=== PATIENT | male | born 1970 | race American Indian/Alaskan Native ===

== ENCOUNTER 2016-10-22 15:59 | Emergency (ER) | payer OTHER ==
[2016-10-22 16:43] LABS: Basophils % (Auto) 0.6 % (0.0-1.8); Eosinophils % (Auto) 3.6 % (0.0-4.3); Hematocrit 43.3 % (35.5-45.6); Hemoglobin 14.1 gm/dl (11.8-15.2); Mean Corpuscular HGB Conc 33 % (32-34); Mean Corpuscular Hemoglobin 27 pg (28-32); Mean Corpuscular Volume 84 fl (84-94); Platelet Count 317 K/mm3 (140-440); Red Blood Count 5.16 M/mm3 (3.65-5.03); Red Cell Distribution Width 13.5 % (13.2-15.2); White Blood Count 8.1 K/mm3 (4.5-11.0)
[2016-10-22 17:01] LABS: Anion Gap 20 mmol/L; Blood Urea Nitrogen 12 mg/dL (9-20); Calcium 8.8 mg/dL (8.4-10.2); Carbon Dioxide 25 mmol/L (22-30); Chloride 100.7 mmol/L (98-107); Glucose 93 mg/dL (75-100); Potassium 3.8 mmol/L (3.6-5.0); Sodium 142 mmol/L (137-145)
[2016-10-22 23:24] VITALS: BP 179/83
[2016-10-22] MEDS ORDERED: PEPCID PO ONE (23:55)
[2016-10-22] MEDS ORDERED: TYLENOL PO ONE (23:55)
--- NOTE | 2016-10-23 00:01 | Emergency Department Report ---
HPI - General Chief Complaint: Chest Pain Time Seen by Provider: 10/22/16 22:56 - HPI HPI: The patient is a 46 amount presents for evaluation of chest pain. The patient reports constant chest pain for the past 12 hours, 5/10 in severity, aching in quality. The patient says that he has experienced similar pains for the past 9 months. The patient denies fever, neck pain, parasthesias, dyspnea, cough, hemoptysis, palpitations, dizziness, syncope, unilateral leg swelling, calf muscle pain. Patient also denies cocaine or other stimulant use, history of DVT or PE, recent immobilization, or history of cancer. ED Past Medical Hx - Past Medical History Hx Hypertension: Yes (BORDERLINE) Additional medical history: OBESITY - Surgical History Past Surgical History?: No Additional Surgical History: Lower endoscopy 5 years ago - Social History Smoking Status: Never Smoker Substance Use Type: Alcohol, Marijuana - Medications Home Medications: Home Medications Medication Instructions Recorded Confirmed Last Taken Type Famotidine [Pepcid] 20 mg PO BID #28 tablet 10/23/16 Unknown Rx Omeprazole Magnesium [PriLOSEC Otc] 20 mg PO QDAY #14 tablet. 10/23/16 Unknown Rx traMADol [Ultram 50 MG tab] 50 mg PO Q6HR PRN #12 tablet 10/23/16 Unknown Rx ED Review of Systems ROS: Stated complaint: CHEST PAIN/DIZZY SPELLS Other details as noted in HPI Constitutional: denies: fever ENT: denies: throat or neck pain Respiratory: denies: cough, shortness of breath Cardiovascular: reports chest pain Endocrine: denies unexplained weight loss or gain Gastrointestinal: denies: abdominal pain, nausea Genitourinary: denies: dysuria Musculoskeletal: denies: leg swelling Skin: denies: rash Neurological: denies: headache Hematological/Lymphatic: denies: easy bleeding or easy bruising Psych: denies sadness or hopelessness Physical Exam - Physical Exam Vital Signs: Vital Signs 10/22/16 10/22/16 10/22/16 16:00 22:07 23:21 Temperature 97.5 F L 98.2 F 97.9 F Pulse Rate 81 66 66 Respiratory 18 20 14 Rate Blood Pressure 150/98 138/90 Blood Pressure 179/83 [Left] O2 Sat by Pulse 99 100 99 Oximetry Physical Exam: General: well-nourished, well-developed, no acute distress Head: Normocephalic, atraumatic Eyes: normal sclera ENT: Mucous membranes are pink and moist Neck: trachea midline, neck supple, No neck stiffness, no cervical adenopathy Respiratory: Breath sounds equal bilaterally, no wheezing, rales, or rhonchi Cardio: S1 and S2 present, no murmurs, rubs, gallops, capillary refill is brisk Abdomen: Normoactive bowel sounds, soft abdomen, no rigidity, no guarding or rebound tenderness Musc: No pitting edema Skin: No rash Neuro: no facial drooping, normal speech Psych: Normal affect ED Course Vital Signs 10/22/16 10/22/16 10/22/16 16:00 22:07 23:21 Temperature 97.5 F L 98.2 F 97.9 F Pulse Rate 81 66 66 Respiratory 18 20 14 Rate Blood Pressure 150/98 138/90 Blood Pressure 179/83 [Left] O2 Sat by Pulse 99 100 99 Oximetry ED Medical Decision Making - Lab Data Result diagrams: 10/22/16 16:27 10/22/16 16:27 - Medical Decision Making The patient was seen and examined by myself. The patient is placed on a cardiac rehabilitation program director and continuous pulse ox. On initial evaluation, the patient was found to be in no distress. EKG was negative for findings suggestive of acute cardiac infarct. Labs and imaging are obtained. The patient is given a tablet of Tylenol and Pepcid for his pain. Chest x-ray is negative for pneumothorax, focal consolidation, pulmonary vascular congestion, pleural effusion, or other obvious acute cardiopulmonary disease process. Lab results were non-concerning including levels of troponin, WBC, hemoglobin, hematocrit, electrolytes, renal function. The patient was reevaluated and reported that their symptoms were markedly improved. As the patient has a EAGLE risk score less than 2, and a well 's score less than 2, the patient is at low risk of ACS or pulmonary emboli etiology of their symptoms. The patient is stable for discharge with outpatient follow-up. The patient is given follow-up and return instructions. The patient expressed understanding and agreed with the plan. The patient is discharged in stable condition. Critical care attestation.: If time is entered above; I have spent that time in minutes in the direct care of this critically ill patient, excluding procedure time. ED Disposition Clinical Impression: Acute chest pain Disposition: DISCHARGED TO HOME OR SELFCARE Is pt being admited?: No Does the pt Need Aspirin: No Condition: Stable Instructions: Peptic Ulcer (ED), Gastritis (ED), Diet for Ulcers and Gastritis (ED), Costochondritis (ED) Prescriptions: Famotidine [Pepcid] 20 mg PO BID #28 tablet Omeprazole Magnesium [PriLOSEC Otc] 20 mg PO QDAY #14 tablet. traMADol [Ultram 50 MG tab] 50 mg PO Q6HR PRN #12 tablet PRN Reason: Pain Referrals: SHAUNA SOTELO MD [Primary Care Provider] - 3-5 Days Time of Disposition: 00:01
--- NOTE | 2016-10-23 08:44 | XRay Report ---
PORTABLE CHEST INDICATION: Chest pain. COMPARISON: None similar. FINDINGS: Portable, frontal chest radiograph demonstrates normal cardiomediastinal silhouette with slight nonspecific convex contour prominence along the ascending aortic root region. Normal bobby. Clear lungs. EKG leads. Unremarkable bones. CONCLUSION: No acute chest process, as described. Direct comparison with similar prior imaging would also be helpful, if available. Thank you for the opportunity to participate in this patient's care.
== END 2016-10-23 00:52 | disposition home or self-care (01) ==
LOC: ED 15:59
DX: R07.89 Other chest pain (principal); Z98.890 Other specified postprocedural states
CPT/HCPCS: 36415; 71010; 80048; 84484; 85025; 93005; 93010

== ENCOUNTER 2017-07-14 10:54 | Emergency (ER) | payer OTHER ==
[2017-07-14 11:28] VITALS: BP 148/97
[2017-07-14] MEDS ORDERED: FLEXERIL PO ONE (13:45)
[2017-07-14] MEDS ORDERED: TORADOL IM ONE (13:45)
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
== END 2017-07-14 14:25 | disposition home or self-care (01) ==
LOC: ED 10:54
DX: S39.012A Strain of muscle, fascia and tendon of lower back, initial encounter (principal); I10 Essential (primary) hypertension; E66.9 Obesity, unspecified; V43.52XA Car driver injured in collision with other type car in traffic accident, initial encounter; Y93.9 Activity, unspecified; Y92.410 Unspecified street and highway as the place of occurrence of the external cause; Y99.9 Unspecified external cause status
CPT/HCPCS: 96372; 99282; J1885

== ENCOUNTER 2019-07-12 07:51 | Emergency (ER) | payer SELFPAY ==
--- NOTE | 2019-07-12 09:04 | XRay Report ---
Left shoulder-3 views INDICATION: left shoulder pain. COMPARISON: None. IMPRESSION: No acute osseous or soft tissue abnormality. 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 Signer Name: Olman Jones MD Signed: 07/12/2019 9:00 AM Workstation Name: [id number]
--- NOTE | 2019-07-12 09:49 | Emergency Department Report ---
Upper Extremity - HPI Chief Complaint: Chest Pain Stated Complaint: LT ARM PAIN/HEADACHE Time Seen by Provider: 07/12/19 08:19 Upper Extremity: Left Shoulder Occurred When: >5 Days Mechanism: Other Severity: mild, moderate Symptoms: Yes Pain with Movement, Yes Limited Range of Movement Other History: 49-year-old -[place] male with no reported past medical history presents emergency department complaining of a several week history of progressively worsening left shoulder pain was sharp and achy throbbing nature worse with range of motion certain positions. Reports no shortness of breath, no palpitations, no numbness, no tingling but states the pain does shoot down on a sharp burning fashion in certain positions. He also states that he gets bouts of acid reflux that does not correlate with shoulder pain but the fact that he is out of his medication. He reports no hemoptysis, hematemesis, hematochezia. No fever, chills, sweats no rashes. No reported direct trauma ED Review of Systems ROS: Stated complaint: LT ARM PAIN/HEADACHE Other details as noted in HPI Comment: All other systems reviewed and negative ED Past Medical Hx - Past Medical History Previous Medical History?: No Hx Hypertension: (BORDERLINE) Additional medical history: OBESITY - Surgical History Past Surgical History?: No Additional Surgical History: Lower endoscopy 5 years ago - Social History Smoking Status: Current Some Day Smoker Substance Use Type: None - Medications Home Medications: Home Medications Medication Instructions Recorded Confirmed Last Taken Type Famotidine [Pepcid] 20 mg PO BID #28 tablet 10/23/16 Unknown Rx Omeprazole Magnesium [PriLOSEC Otc] 20 mg PO QDAY #14 tablet. 10/23/16 Unknown Rx traMADoL [Ultram 50 MG tab] 50 mg PO Q6HR PRN #12 tablet 10/23/16 Unknown Rx Cyclobenzaprine [Flexeril 10 MG 10 mg PO QHS #20 tablet 07/14/17 Unknown Rx TAB] Naproxen [Naprosyn] 500 mg PO BID #30 tablet 07/14/17 Unknown Rx Ketorolac [Toradol] 10 mg PO Q6H PRN #15 tablet 07/12/19 Unknown Rx Upper Extremity Exam - Exam General: Vital signs noted. No distress. Alert and acting appropriately. Head and Torso: No HEENT Abnormality, No Neck Tenderness, No Chest/Lungs Abnormality, No Abdominal Tenderness, No Back Tenderness Shoulder Exam: Yes Shoulder Tenderness, Yes Normal Range of Motion in Shoulder, Yes AC Joint Tenderness (pain with [place]'s test. Pain with near test no sulcus ), No Clavicle Tenderness, No Shoulder Deformity Arm Exam: No Arm/Humerus Tenderness, No Arm Deformity Elbow: No Elbow Tenderness, No Normal Range of Motion in Elbow, No Elbow Deformity Forearm: No Forearm Tenderness, No Forearm Deformity, No Pain with Pronation, No Pain with Supination Wrist: Yes Normal ROM in Wrist, No Wrist Tenderness, No Wrist Deformity, No Snuffbox Tenderness, No Pain with Axial Thumb Compression Hand: Yes Normal ROM in Digit(s), No Hand Tenderness, No Hand Deformity, No Digit Tenderness, No Digit(s) Deformity, No Tendon Dysfunction CMS Exam: No Broken Skin, No Normal Distal Pulses, No Normal Capillary Refill, No Normal Distal Sensation ED Course Vital Signs 07/12/19 08:05 Temperature 97.6 F Pulse Rate 76 Respiratory 18 Rate Blood Pressure 148/98 O2 Sat by Pulse 98 Oximetry ED Medical Decision Making - Radiology Data Radiology results: report reviewed [address] [address] XRay Report Signed Patient: MARY MUÑOZ MR#: [id number] : 1970 Acct:[id number] Age/Sex: 49 / M ADM Date: 07/12/19 Loc: ED Attending Dr: Ordering Physician: TIMUR BRICE Date of Service: 07/12/19 Procedure(s): XR shoulder 2+V LT Accession Number(s): [id number] cc: TIMUR BRICE Fluoro Time In Minutes: Left shoulder-3 views INDICATION: left shoulder pain. COMPARISON: None. IMPRESSION: No acute osseous or soft tissue abnormality. 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 Signer Name: Olman Jones MD Signed: 07/12/2019 9:00 AM Workstation Name: [id number] Transcribed By: CHRISSY Dictated By: Olman Jones MD Electronically Authenticated By: Olman Jones MD Signed Date/Time: 07/12/19 09 DD/ - Medical Decision Making This patient presents with left shoulder pain primarily that is reproducible on examination and x-ray showed poor arthralgia. Triage did make a correlation with chest pain although this is not his complete complaint. The chest pain he was suspicious of was regarding to his acid reflux medication began out no shortness of breath no exertional dyspnea and no exertional chest pain and no. The chest pain that is very unlikely angina or acute coronary syndrome. The emergency department evaluation has not identified any cause for suspicion that this chest pain has a cardiac etiology. Based on their history, EKG (which showed no evidence of ischemia or infarction) and imaging, in addition to the patient's physical exam, I see no evidence at this time for a malignant etiology for the patient's chest pain. There is no acute evidence for pulmonary embolus, acute myocardial infarction, pneumothorax, Boerhaeve syndrome, cardiac tamponade, thoracic artery dissection, or any other emergent cardiac, pulmonary or aortic pathology. Given the low pre-test probability for cardiac etiology of chest pain and the absence of any sign of ischemia or infarction, discharge for outpatient follow-up and further evaluation is reasonable. I have explained to the patient that even though a cardiac problem is very unlikely, follow-up and further testing is required to reduce further the already small uncertainty that exists. Other life-threatening diagnoses have been considered. The patient understands the need to return immediately if their symptoms worsen or they develop any new symptoms, and not to engage in any significant exertional activity until follow-up is obtained. Critical care attestation.: If time is entered above; I have spent that time in minutes in the direct care of this critically ill patient, excluding procedure time. ED Disposition Clinical Impression: Shoulder pain, left Disposition: DC-01 TO HOME OR SELFCARE Is pt being admited?: No Does the pt Need Aspirin: No Condition: Stable Instructions: Rotator Cuff Injury (ED), Shoulder Bursitis (ED), Arthralgia (ED) Referrals: TINO STORY MD [Staff Physician] - 3-5 Days
[2019-07-12 10:18] VITALS: BP 146/91
== END 2019-07-12 10:17 | disposition home or self-care (01) ==
LOC: ED 07:51
DX: M25.512 Pain in left shoulder (principal); I10 Essential (primary) hypertension; E66.9 Obesity, unspecified; F17.200 Nicotine dependence, unspecified, uncomplicated; Z79.899 Other long term (current) drug therapy
CPT/HCPCS: 82962; 93005; 93010

== ENCOUNTER 2019-11-04 13:02 | Emergency (ER) | payer SELFPAY ==
[2019-11-04 13:10] VITALS: BP 172/97
--- NOTE | 2019-11-04 13:21 | Emergency Department Report ---
Chief Complaint: Chest Pain Stated Complaint: CHEST PAIN Time Seen by Provider: 11/04/19 13:18 - Exam Vital Signs: Vital Signs 11/04/19 13:07 Temperature 98.1 F Pulse Rate 90 Respiratory 16 Rate Blood Pressure 172/97 [Right] O2 Sat by Pulse 98 Oximetry MSE screening note: Focused history and physical exam performed. Due to findings the following was ordered: ED Disposition for MSE Clinical Impression: Cough, Folliculitis, Chest pain Disposition: MED SCREENING EXAM-LEFT Is pt being admited?: No Does the pt Need Aspirin: No Condition: Stable Instructions: Chest Pain (ED) Additional Instructions: bronchitis Referrals: [facility] [Provider Group] - 3-5 Days
== END 2019-11-04 17:05 | disposition left against medical advice (07) ==
LOC: ED 13:02
DX: L73.9 Follicular disorder, unspecified (principal); R05 Cough; R07.89 Other chest pain
CPT/HCPCS: 99282

== ENCOUNTER 2020-01-03 16:32 | Emergency (ER) | payer BC ==
[2020-01-03 16:36] VITALS: BP 135/87
[2020-01-03 17:09] LABS: Basophils # (Auto) 0.1 K/mm3 (0.0-0.1); Basophils % (Auto) 0.7 % (0.0-1.8); Eosinophils # (Auto) 0.1 K/mm3 (0.0-0.4); Eosinophils % (Auto) 1.1 % (0.0-4.3); Hematocrit 43.8 % (35.5-45.6); Hemoglobin 14.6 gm/dl (11.8-15.2); Lymphocytes # (Auto) 2.5 K/mm3 (1.2-5.4); Lymphocytes % (Auto) 26.8 % (13.4-35.0); Mean Corpuscular HGB Conc 33 % (32-34); Mean Corpuscular Volume 84 fl (84-94); Monocytes # (Auto) 0.6 K/mm3 (0.0-0.8); Monocytes % (Auto) 6.4 % (0.0-7.3); Platelet Count 348 K/mm3 (140-440); Red Cell Distribution Width 13.6 % (13.2-15.2)
[2020-01-03 17:18] LABS: BUN/Creatinine Ratio 8; Blood Urea Nitrogen 8 mg/dL (9-20); Calcium 9.8 mg/dL (8.4-10.2); Hemolysis Index 15
[2020-01-03] MEDS ORDERED: ALUM-MAG HYDROXIDE-SIMETHICONE 200-200-20MG/5ML ORAL LIQD 30 ML PO ONE (17:19)
[2020-01-03] MEDS ORDERED: LIDOCAINE VISCOUS 2% 15 ML ORAL LIQD PO ONE (17:19)
--- NOTE | 2020-01-03 17:30 | Emergency Department Report ---
ED Chest Pain HPI - General Chief Complaint: Chest Pain Stated Complaint: CP/BURPING Time Seen by Provider: 01/03/20 17:18 Source: patient Mode of arrival: Ambulatory Limitations: No Limitations - History of Present Illness Initial Comments: This is a pleasant 49-year-old male who presents the emergency department with multiple complaints including intermittent chest pain and back pain over the past year that he describes as burning. Rates the severity of his pain is a 7 out of 10 and reports it is alleviated by belching. He denies any aggravating factors. He also reports intermittent paresthesias to his hand and leg over the past year. He reports these episodes have caused him increased anxiety and he has started to exercise and diet as well as take increased vitamin supplementation. He denies any shortness of breath, exertional chest pain or shortness of breath, cough, fever, chills, night sweats, headache, dizziness, blurry vision, nausea, vomiting, diarrhea. He denies any chest pain currently. He denies any history of hypertension, diabetes or tobacco use. Does report a history of elevated cholesterol. He denies any family history of coronary artery disease. He denies any personal or family history of thromboembolic disease. - Related Data Previous Rx's Medication Instructions Recorded Last Taken Type Famotidine [Pepcid] 20 mg PO BID #28 tablet 10/23/16 Unknown Rx Omeprazole Magnesium [PriLOSEC Otc] 20 mg PO QDAY #14 tablet. 10/23/16 Unknown Rx traMADoL [Ultram 50 MG tab] 50 mg PO Q6HR PRN #12 tablet 10/23/16 Unknown Rx Cyclobenzaprine [Flexeril 10 MG 10 mg PO QHS #20 tablet 07/14/17 Unknown Rx TAB] Naproxen [Naprosyn] 500 mg PO BID #30 tablet 07/14/17 Unknown Rx Ketorolac [Toradol] 10 mg PO Q6H PRN #15 tablet 07/12/19 Unknown Rx Omeprazole Magnesium [PriLOSEC Otc] 20 mg PO QDAY #30 tablet. 01/03/20 Unknown Rx Sucralfate [Carafate] 1 gm PO Q6HR #90 tablet 01/03/20 Unknown Rx Allergies Allergy/AdvReac Type Severity Reaction Status Date / Time No Known Allergies Allergy Verified 10/22/16 16:13 Heart Score - HEART Score History: Slightly suspicious EKG: Normal Age: 45-65 Risk factors: 1-2 risk factors Troponin: < normal limit HEART Score: 2 ED Review of Systems ROS: Stated complaint: CP/BURPING Other details as noted in HPI Comment: All other systems reviewed and negative Constitutional: denies: chills, fever Eyes: denies: eye pain, eye discharge, vision change ENT: denies: ear pain, throat pain Respiratory: denies: cough, shortness of breath, wheezing Cardiovascular: as per HPI, chest pain. denies: palpitations Endocrine: no symptoms reported Gastrointestinal: denies: abdominal pain, nausea, diarrhea Genitourinary: denies: urgency, dysuria Musculoskeletal: denies: back pain, joint swelling, arthralgia Skin: denies: rash, lesions Neurological: as per HPI, paresthesias. denies: headache, weakness Psychiatric: denies: anxiety, depression Hematological/Lymphatic: denies: easy bleeding, easy bruising ED Past Medical Hx - Past Medical History Previous Medical History?: Yes Hx Hypertension: (BORDERLINE) Additional medical history: OBESITY - Surgical History Past Surgical History?: Yes Additional Surgical History: Lower endoscopy 5 years ago - Social History Smoking Status: Former Smoker Substance Use Type: None - Medications Home Medications: Home Medications Medication Instructions Recorded Confirmed Last Taken Type Famotidine [Pepcid] 20 mg PO BID #28 tablet 10/23/16 Unknown Rx Omeprazole Magnesium [PriLOSEC Otc] 20 mg PO QDAY #14 tablet. 10/23/16 Unknown Rx traMADoL [Ultram 50 MG tab] 50 mg PO Q6HR PRN #12 tablet 10/23/16 Unknown Rx Cyclobenzaprine [Flexeril 10 MG 10 mg PO QHS #20 tablet 07/14/17 Unknown Rx TAB] Naproxen [Naprosyn] 500 mg PO BID #30 tablet 07/14/17 Unknown Rx Ketorolac [Toradol] 10 mg PO Q6H PRN #15 tablet 07/12/19 Unknown Rx Omeprazole Magnesium [PriLOSEC Otc] 20 mg PO QDAY #30 tablet. 01/03/20 Unknown Rx Sucralfate [Carafate] 1 gm PO Q6HR #90 tablet 01/03/20 Unknown Rx ED Physical Exam - General Limitations: No Limitations General appearance: alert, in no apparent distress - Head Head exam: Present: atraumatic, normocephalic - Eye Eye exam: Present: normal appearance, PERRL, EOMI Pupils: Present: normal accommodation - ENT ENT exam: Present: normal exam, normal orophraynx, mucous membranes moist - Neck Neck exam: Present: normal inspection, full ROM. Absent: tenderness, meningismus - Respiratory Respiratory exam: Present: normal lung sounds bilaterally, other (Normal equal radial pulses bilaterally). Absent: respiratory distress, wheezes, rales, rhonchi, stridor - Cardiovascular Cardiovascular Exam: Present: regular rate, normal rhythm, normal heart sounds. Absent: systolic murmur, diastolic murmur, rubs, gallop - GI/Abdominal GI/Abdominal exam: Present: soft, normal bowel sounds. Absent: distended, tenderness, guarding, rebound, rigid - Rectal Rectal exam: Present: deferred - Extremities Exam Extremities exam: Present: normal inspection, full ROM, normal capillary refill. Absent: tenderness, calf tenderness (Negative Homans sign bilaterally, no lower extremity edema, no palpable cords or posterior calf tenderness) - Back Exam Back exam: Present: normal inspection, full ROM. Absent: tenderness, CVA tenderness (R), CVA tenderness (L) - Neurological Exam Neurological exam: Present: alert, oriented X3, normal gait - Psychiatric Psychiatric exam: Present: normal affect, normal mood - Skin Skin exam: Present: warm, dry, intact, normal color. Absent: rash ED Course Vital Signs 01/03/20 16:32 Temperature 97.6 F Pulse Rate 86 Respiratory 18 Rate Blood Pressure 135/87 O2 Sat by Pulse 97 Oximetry WALE score - Wale Score Age > 65: (0) No Aspirin use within the Past 7 Days: (0) No 3 or more CAD Risk Factors: (0) No 2 or more Angina events in past 24 hrs: (0) No Known CAD with more than 50% Stenosis: (0) No Elevated Cardiac Markers: (0) No ST Deviation Greater than 0.5mm: (0) No WALE Score: 0 ED Medical Decision Making - Lab Data Result diagrams: 01/03/20 16:47 01/03/20 16:47 Lab Results 01/03/20 01/03/20 Range/Units 16:47 16:47 WBC 9.2 (4.5-11.0) K/mm3 RBC 5.20 H (3.65-5.03) M/mm3 Hgb 14.6 (11.8-15.2) gm/dl Hct 43.8 (35.5-45.6) % MCV 84 (84-94) fl MCH 28 (28-32) pg MCHC 33 (32-34) % RDW 13.6 (13.2-15.2) % Plt Count 348 (140-440) K/mm3 Lymph % (Auto) 26.8 (13.4-35.0) % Grimes % (Auto) 6.4 (0.0-7.3) % Eos % (Auto) 1.1 (0.0-4.3) % Baso % (Auto) 0.7 (0.0-1.8) % Lymph # 2.5 (1.2-5.4) K/mm3 Grimes # 0.6 (0.0-0.8) K/mm3 Eos # 0.1 (0.0-0.4) K/mm3 Baso # 0.1 (0.0-0.1) K/mm3 Seg Neutrophils % 65.0 (40.0-70.0) % Seg Neutrophils # 6.0 (1.8-7.7) K/mm3 Sodium 137 (137-145) mmol/L Potassium 4.1 (3.6-5.0) mmol/L Chloride 97.4 L (98-107) mmol/L Carbon Dioxide 24 (22-30) mmol/L Anion Gap 20 mmol/L BUN 8 L (9-20) mg/dL Creatinine 1.0 (0.8-1.5) mg/dL Estimated GFR > 60 ml/min BUN/Creatinine Ratio 8 % Glucose 105 H (75-100) mg/dL Calcium 9.8 (8.4-10.2) mg/dL Troponin T < 0.010 (0.00-0.029) ng/mL - EKG Data -: EKG Interpreted by Tn EKG shows normal: sinus rhythm Rate: normal - EKG Data When compared to previous EKG there are: other Interpretation: normal EKG (Normal sinus rhythm with a rate of 77, no acute ST or T wave abnormalities, no STEMI, normal axis, normal intervals, no ectopy.) - Radiology Data Radiology results: report reviewed CHEST PA AND LATERAL VIEWS INDICATION: Chest Pain. COMPARISON: 10/22/2016. FINDINGS: Support devices: None. Heart: Within normal limits. Lungs/Pleura: No acute pulmonary or pleural findings. IMPRESSION: 1. No acute findings. Signer Name: Dexter Seymour MD Signed: 01/03/2020 5:11 PM Workstation Name: [id number] Transcribed By: RADHA Dictated By: Dexter Seymour MD Electronically Authenticated By: Dexter Seymour MD Signed Date/Time: 01/03/20 2801 - Medical Decision Making Patient is nontoxic in no acute distress. Patient is not having any active chest pain. EKG is unremarkable and troponin is negative. Heart score is to make the patient a low risk for ACS. Patient has been having ongoing chest pain for the past year and made a decision to only run 1 troponin due to the ongoing chest pain. Patient had no history of hypertension, diabetes, family history or smoking and his only cardiac risk factor was a previous history of a mildly elevated cholesterol level. Patient has a low risk by Wells criteria and is PERC negative making PE unlikely. Patient had a negative chest x-ray making pneumothorax and pneumonia less likely. There is no widening of the mediastinum, no ripping or tearing pain to the back, normal equal radial pulses bilaterally making acute aortic dissection unlikely. Patient had no right upper quadrant tenderness, negative Ramos sign making cholecystitis, choledocholithiasis or cholelithiasis unlikely. Patient no history of alcoholism and no epigastric pain or pain radiating to his back making acute pancreatitis unlikely. Patient described his pain as burning and intermittent. I suspect his pain is likely more due to GERD. We gave a GI cocktail and his symptoms resolved. Patient was instructed to return to the emergency department if he develops any changing worsening symptoms. Recommend follow-up with GI and primary care. We will treat with Prilosec and Carafate. Patient verbalized understanding of the diagnosis, treatment plan and follow-up instructions all of his questions were answered. - Differential Diagnosis ACS, PE, aortic dissection, pneumonia, pneumothorax Critical care attestation.: If time is entered above; I have spent that time in minutes in the direct care of this critically ill patient, excluding procedure time. ED Disposition Clinical Impression: Nonspecific chest pain, Dyspepsia Disposition: DC- TO HOME OR SELFCARE Is pt being admited?: No Condition: Stable Instructions: Chest Pain (ED) Prescriptions: Sucralfate [Carafate] 1 gm PO Q6HR #90 tablet Omeprazole Magnesium [PriLOSEC Otc] 20 mg PO QDAY #30 tablet.dr Referrals: PRIMARY CARE, [Primary Care Provider] - 3-5 Days [facility] [Provider Group] - 3-5 Days Time of Disposition: 18:10
--- NOTE | 2020-01-03 17:39 | XRay Report ---
CHEST PA AND LATERAL VIEWS INDICATION: Chest Pain. COMPARISON: 10/22/2016. FINDINGS: Support devices: None. Heart: Within normal limits. Lungs/Pleura: No acute pulmonary or pleural findings. IMPRESSION: 1. No acute findings. Signer Name: Dexter Seymour MD Signed: 01/03/2020 5:11 PM Workstation Name: [id number]
== END 2020-01-03 18:19 | disposition home or self-care (01) ==
LOC: ED 16:32
DX: R10.13 Epigastric pain (principal); R07.89 Other chest pain; E66.9 Obesity, unspecified; Z68.41 Body mass index [BMI] 40.0-44.9, adult; Z79.899 Other long term (current) drug therapy; Z87.891 Personal history of nicotine dependence; Z98.890 Other specified postprocedural states
CPT/HCPCS: 36415; 71046; 80048; 84484; 85025; 93005

== ENCOUNTER 2020-01-14 00:24 | Emergency (ER) | payer BC ==
[2020-01-14 01:01] VITALS: BP 152/95
--- NOTE | 2020-01-14 01:23 | Emergency Department Report ---
ED Animal Bite HPI - General Chief Complaint: Animal Bite Stated Complaint: DOG BITE X1M AGO Time Seen by Provider: 01/14/20 01:14 Source: patient Mode of arrival: Ambulatory Limitations: No Limitations - History of Present Illness Initial Comments: 49-year-old male presents emergency department seeking to have his right arm evaluated status post what he describes as a light dog bite about 2 months ago. With his teeth and he began to think today about possibly having had rabies. He reports no current symptoms feels normal no pain wound healed well with no complications MD Complaint: animal bite - Related Data Previous Rx's Medication Instructions Recorded Last Taken Type Famotidine [Pepcid] 20 mg PO BID #28 tablet 10/23/16 Unknown Rx Omeprazole Magnesium [PriLOSEC Otc] 20 mg PO QDAY #14 tablet. 10/23/16 Unknown Rx traMADoL [Ultram 50 MG tab] 50 mg PO Q6HR PRN #12 tablet 10/23/16 Unknown Rx Cyclobenzaprine [Flexeril 10 MG 10 mg PO QHS #20 tablet 07/14/17 Unknown Rx TAB] Naproxen [Naprosyn] 500 mg PO BID #30 tablet 07/14/17 Unknown Rx Ketorolac [Toradol] 10 mg PO Q6H PRN #15 tablet 07/12/19 Unknown Rx Omeprazole Magnesium [PriLOSEC Otc] 20 mg PO QDAY #30 tablet. 01/03/20 Unknown Rx Sucralfate [Carafate] 1 gm PO Q6HR #90 tablet 01/03/20 Unknown Rx Allergies Allergy/AdvReac Type Severity Reaction Status Date / Time No Known Allergies Allergy Verified 10/22/16 16:13 ED Review of Systems ROS: Stated complaint: DOG BITE X1M AGO Other details as noted in HPI Comment: All other systems reviewed and negative ED Past Medical Hx - Past Medical History Previous Medical History?: Yes Hx Hypertension: (BORDERLINE) Additional medical history: OBESITY - Surgical History Past Surgical History?: Yes Additional Surgical History: Lower endoscopy 5 years ago - Social History Smoking Status: Never Smoker Substance Use Type: None - Medications Home Medications: Home Medications Medication Instructions Recorded Confirmed Last Taken Type Famotidine [Pepcid] 20 mg PO BID #28 tablet 10/23/16 Unknown Rx Omeprazole Magnesium [PriLOSEC Otc] 20 mg PO QDAY #14 tablet. 10/23/16 Unknown Rx traMADoL [Ultram 50 MG tab] 50 mg PO Q6HR PRN #12 tablet 10/23/16 Unknown Rx Cyclobenzaprine [Flexeril 10 MG 10 mg PO QHS #20 tablet 07/14/17 Unknown Rx TAB] Naproxen [Naprosyn] 500 mg PO BID #30 tablet 07/14/17 Unknown Rx Ketorolac [Toradol] 10 mg PO Q6H PRN #15 tablet 07/12/19 Unknown Rx Omeprazole Magnesium [PriLOSEC Otc] 20 mg PO QDAY #30 tablet. 01/03/20 Unknown Rx Sucralfate [Carafate] 1 gm PO Q6HR #90 tablet 01/03/20 Unknown Rx ED Physical Exam - General Limitations: No Limitations General appearance: alert, in no apparent distress - Eye Eye exam: Present: normal appearance - ENT ENT exam: Present: mucous membranes moist - Respiratory Respiratory exam: Present: normal lung sounds bilaterally. Absent: respiratory distress - Extremities Exam Extremities exam: Present: normal inspection - Back Exam Back exam: Present: normal inspection - Psychiatric Psychiatric exam: Present: normal affect, normal mood - Skin Skin exam: Present: warm, dry, intact, normal color, other (No current injury normal skin). Absent: rash ED Course Vital Signs 01/14/20 01/14/20 00:54 01:00 Temperature 98.6 F Pulse Rate 87 Respiratory 18 Rate Blood Pressure 152/95 O2 Sat by Pulse 99 Oximetry Critical care attestation.: If time is entered above; I have spent that time in minutes in the direct care of this critically ill patient, excluding procedure time. ED Disposition Clinical Impression: Dog bite Disposition: MED SCREENING EXAM-LEFT Is pt being admited?: No Does the pt Need Aspirin: No Condition: Stable Instructions: Animal Bite (ED) Referrals: PRIMARY CARE, [Primary Care Provider] - 3-5 Days
== END 2020-01-14 02:00 | disposition left against medical advice (07) ==
LOC: ED 00:24
DX: S41.151A Open bite of right upper arm, initial encounter (principal); E66.9 Obesity, unspecified; Z79.899 Other long term (current) drug therapy; Z68.38 Body mass index [BMI] 38.0-38.9, adult; Z98.890 Other specified postprocedural states; W54.0XXA Bitten by dog, initial encounter; Y93.89 Activity, other specified; Y92.89 Other specified places as the place of occurrence of the external cause; Y99.8 Other external cause status
CPT/HCPCS: 99281

== ENCOUNTER 2020-02-23 17:00 | Emergency (ER) | payer BC ==
[2020-02-23 17:20] VITALS: BP 141/92
--- NOTE | 2020-02-23 17:20 | Event Note ---
ED Screening Note Date of service: 02/23/20 Time: 17:19 ED Screening Note: 49-year-old male patient complains of sudden onset of left arm tingling and numbness while walking today Patient states he is very anxious and feels like he is having a panic attack He denies any chest pain or shortness of breath This initial assessment/diagnostic orders/clinical plan/treatment(s) is/are subject to change based on patients health status, clinical progression and re- assessment by fellow clinical providers in the ED. Further treatment and workup at subsequent clinical providers discretion. Patient/guardian urged not to elope from the ED as their condition may be serious if not clinically assessed and managed. Initial orders include: labs CXR
[2020-02-23 17:47] LABS: Basophils # (Auto) 0.1 K/mm3 (0.0-0.1); Basophils % (Auto) 0.9 % (0.0-1.8); Eosinophils # (Auto) 0.1 K/mm3 (0.0-0.4); Eosinophils % (Auto) 1.5 % (0.0-4.3); Hematocrit 41.8 % (35.5-45.6); Hemoglobin 14.7 gm/dl (11.8-15.2); Lymphocytes % (Auto) 36.6 % (13.4-35.0); Mean Corpuscular HGB Conc 35 % (32-34); Mean Corpuscular Volume 84 fl (84-94); Monocytes # (Auto) 0.6 K/mm3 (0.0-0.8); Monocytes % (Auto) 7.5 % (0.0-7.3); Platelet Count 341 K/mm3 (140-440); Red Blood Count 4.98 M/mm3 (3.65-5.03); Red Cell Distribution Width 13.5 % (13.2-15.2)
--- NOTE | 2020-02-23 17:53 | XRay Report ---
CHEST 1 VIEW 02/23/2020 4:41 PM INDICATION / CLINICAL INFORMATION: chest pain. COMPARISON: Chest x-ray on 02/21/2020 FINDINGS: SUPPORT DEVICES: None. HEART / MEDIASTINUM: No significant abnormality. LUNGS / PLEURA: No significant pulmonary or pleural abnormality. No pneumothorax. ADDITIONAL FINDINGS: No significant additional findings. IMPRESSION: 1. No acute findings. Signer Name: Hema Partida MD Signed: 02/23/2020 5:48 PM Workstation Name: [email or web address]
[2020-02-23 18:13] LABS: Alanine Aminotransferase 26 units/L (7-56); Albumin 4.9 g/dL (3.9-5); BUN/Creatinine Ratio 8; Blood Urea Nitrogen 9 mg/dL (9-20); Calcium 10.1 mg/dL (8.4-10.2); Hemolysis Index 7
--- NOTE | 2020-02-23 20:20 | Emergency Department Report ---
ED General Adult HPI - General Chief complaint: Extremity Injury, Upper Stated complaint: PANIC ATTACK/LEFT ARM NUMB Time Seen by Provider: 02/23/20 17:16 Source: patient Mode of arrival: Ambulatory Limitations: No Limitations - History of Present Illness Initial comments: Patient is a 49-year-old -[place] male with a history of chronic anxiety and panic attacks who presents to the ED with acute onset persistent bilateral tingling sensations on the upper extremities bilaterally for the last 2 days, worse in the last 12 hours. Patient states that the symptoms are been going on and off for the last 3 months and states that he has had multiple tests including head CT scan without contrast with no acute process. Patient states that he has not been taking any medication at all because nobody has prescribed anything for him for anxiety. Patient denies dizziness, chest pain, shortness of breath, neck pain, headache, change in vision, syncope, palpitations, cough, fever, chills, abdominal pain, nausea and vomiting, traumatic injury or change in vision. MD Complaint: Bilateral upper extremity tingling sensations -: Sudden, days(s) (2) Location: upper extremity (bilagterally) Radiation: non-radiation Severity scale (0 -10): 2 Quality: dull Consistency: intermittent Improves with: none Worsens with: none Associated Symptoms: denies other symptoms. denies: confusion, chest pain, rafa phoresis, fever/chills, headaches, loss of appetite, malaise, seizure, shortness of breath, syncope, weakness Treatments Prior to Arrival: none - Related Data Previous Rx's Medication Instructions Recorded Last Taken Type Famotidine [Pepcid] 20 mg PO BID #28 tablet 10/23/16 Unknown Rx Omeprazole Magnesium [PriLOSEC Otc] 20 mg PO QDAY #14 tablet. 10/23/16 Unknown Rx traMADoL [Ultram 50 MG tab] 50 mg PO Q6HR PRN #12 tablet 10/23/16 Unknown Rx Cyclobenzaprine [Flexeril 10 MG 10 mg PO QHS #20 tablet 07/14/17 Unknown Rx TAB] Naproxen [Naprosyn] 500 mg PO BID #30 tablet 07/14/17 Unknown Rx Ketorolac [Toradol] 10 mg PO Q6H PRN #15 tablet 07/12/19 Unknown Rx Omeprazole Magnesium [PriLOSEC Otc] 20 mg PO QDAY #30 tablet. 01/03/20 Unknown Rx Sucralfate [Carafate] 1 gm PO Q6HR #90 tablet 01/03/20 Unknown Rx hydrOXYzine PAMOATE [Vistaril] 50 mg PO Q8HR PRN #30 capsule 02/23/20 Unknown Rx Allergies Allergy/AdvReac Type Severity Reaction Status Date / Time No Known Allergies Allergy Verified 10/22/16 16:13 ED Review of Systems ROS: Stated complaint: PANIC ATTACK/LEFT ARM NUMB Other details as noted in HPI Constitutional: denies: chills, fever Eyes: denies: eye pain, eye discharge, vision change ENT: denies: ear pain, throat pain Respiratory: denies: cough, shortness of breath, wheezing Cardiovascular: denies: chest pain, palpitations Endocrine: no symptoms reported Gastrointestinal: denies: abdominal pain, nausea, diarrhea Genitourinary: denies: urgency, dysuria Musculoskeletal: arthralgia (Bilateral upper and lower extremity tingling sensation). denies: back pain, joint swelling Skin: denies: rash, lesions Neurological: denies: headache, weakness, paresthesias Psychiatric: anxiety. denies: depression, auditory hallucinations, visual hallucinations, suicidal thoughts Hematological/Lymphatic: denies: easy bleeding, easy bruising ED Past Medical Hx - Past Medical History Previous Medical History?: Yes Hx Hypertension: (BORDERLINE) Hx Psychiatric Treatment: Yes (Anxiety and panic attacks) Additional medical history: OBESITY - Surgical History Past Surgical History?: Yes Additional Surgical History: Lower endoscopy 5 years ago - Social History Smoking Status: Never Smoker Substance Use Type: None - Medications Home Medications: Home Medications Medication Instructions Recorded Confirmed Last Taken Type Famotidine [Pepcid] 20 mg PO BID #28 tablet 10/23/16 Unknown Rx Omeprazole Magnesium [PriLOSEC Otc] 20 mg PO QDAY #14 tablet. 10/23/16 Unknow n Rx traMADoL [Ultram 50 MG tab] 50 mg PO Q6HR PRN #12 tablet 10/23/16 Unknown Rx Cyclobenzaprine [Flexeril 10 MG 10 mg PO QHS #20 tablet 07/14/17 Unknown Rx TAB] Naproxen [Naprosyn] 500 mg PO BID #30 tablet 07/14/17 Unknown Rx Ketorolac [Toradol] 10 mg PO Q6H PRN #15 tablet 07/12/19 Unknown Rx Omeprazole Magnesium [PriLOSEC Otc] 20 mg PO QDAY #30 tablet. 01/03/20 Unknown Rx Sucralfate [Carafate] 1 gm PO Q6HR #90 tablet 01/03/20 Unknown Rx hydrOXYzine PAMOATE [Vistaril] 50 mg PO Q8HR PRN #30 capsule 02/23/20 Unknown Rx ED Physical Exam - General Limitations: No Limitations General appearance: alert, in no apparent distress - Head Head exam: Present: atraumatic, normocephalic, normal inspection - Eye Eye exam: Present: normal appearance, PERRL, EOMI Pupils: Present: normal accommodation - ENT ENT exam: Present: normal exam, normal orophraynx, mucous membranes moist, TM's normal bilaterally, normal external ear exam - Neck Neck exam: Present: normal inspection, full ROM - Respiratory Respiratory exam: Present: normal lung sounds bilaterally. Absent: respiratory distress, wheezes, rales, rhonchi, chest wall tenderness, accessory muscle use, decreased breath sounds - Cardiovascular Cardiovascular Exam: Present: regular rate, normal rhythm, normal heart sounds. Absent: systolic murmur, diastolic murmur, rubs, gallop - GI/Abdominal GI/Abdominal exam: Present: soft, normal bowel sounds. Absent: tenderness, guarding, hyperactive bowel sounds, hypoactive bowel sounds - Extremities Exam Extremities exam: Present: normal inspection, full ROM, normal capillary refill - Back Exam Back exam: Present: normal inspection, full ROM. Absent: tenderness, CVA tenderness (R), CVA tenderness (L), muscle spasm, paraspinal tenderness, vertebral tenderness - Neurological Exam Neurological exam: Present: alert, oriented X3, CN II-XII intact, normal gait, reflexes normal - Psychiatric Psychiatric exam: Present: normal affect, normal mood - Skin Skin exam: Present: warm, dry, intact, normal color. Absent: rash ED Course Vital Signs 02/23/20 17:19 Temperature 97.3 F L Pulse Rate 86 Respiratory 18 Rate Blood Pressure 141/92 O2 Sat by Pulse 96 Oximetry ED Medical Decision Making - Lab Data Result diagrams: 02/23/20 17:34 02/23/20 17:34 - Medical Decision Making This is a 49-year-old -[place] male with a history of chronic anxiety and panic attacks who presents to the ED with acute onset persistent bilateral tingling sensations on the upper extremities bilaterally for the last 2 days, worse in the last 12 hours. Patient states that the symptoms are been going on and off for the last 3 months and states that he has had multiple tests including head CT scan without contrast with no acute process. Patient states that he has not been taking any medication at all because nobody has prescribed anything for him for anxiety. In the ED, patient is alert and oriented x3 and is not in any distress but anxious. Patient was discharged home on medications for anxiety, Vistaril and was advised to follow-up with his primary care physician in 5 to 7 days for reevaluation or return to the ED immediately if symptoms get worse. - Differential Diagnosis anxiety; panic attack; radiculopathy Critical care attestation.: If time is entered above; I have spent that time in minutes in the direct care of this critically ill patient, excluding procedure time. ED Disposition Clinical Impression: Anxiety as acute reaction to exceptional stress Disposition: DC-01 TO HOME OR SELFCARE Is pt being admited?: No Does the pt Need Aspirin: No Condition: Stable Instructions: Generalized Anxiety Disorder (ED) Additional Instructions: Your symptoms are due to your anxiety and panic attack. Therefore take medications as advised, drink plenty of fluids and follow-up with your primary care physician as advised. Return to the ED immediately if symptoms get worse. Prescriptions: hydrOXYzine PAMOATE [Vistaril] 50 mg PO Q8HR PRN #30 capsule PRN Reason: Anxiety Referrals: [facility] [Provider Group] - 3-5 Days Time of Disposition: 20:18 Print Language: VIETNAMESE
== END 2020-02-23 21:52 | disposition home or self-care (01) ==
LOC: ED 17:00
DX: F41.1 Generalized anxiety disorder (principal); F43.0 Acute stress reaction; I10 Essential (primary) hypertension; Z98.890 Other specified postprocedural states; Z79.899 Other long term (current) drug therapy
CPT/HCPCS: 36415; 71045; 80053; 85025

== ENCOUNTER 2020-08-04 13:17 | Emergency (ER) | payer BC ==
[2020-08-04 13:33] VITALS: BP 127/85
--- NOTE | 2020-08-04 14:13 | Event Note ---
ED Screening Note Date of service: 08/04/20 Time: 14:10 ED Screening Note: 50-year-old -[place]one[place] male presents to the emergency room complaining of body aches and chills bilateral eye pain for over a week. No relief from increasing rest or fluids. Denies any fever reports a little chest tightness. This initial assessment/diagnostic orders/clinical plan/treatment(s) is/are subject to change based on patients health status, clinical progression and re- assessment by fellow clinical providers in the ED. Further treatment and workup at subsequent clinical providers discretion. Patient/guardian urged not to elope from the ED as their condition may be serious if not clinically assessed and managed. Initial orders include:
--- NOTE | 2020-08-04 15:02 | XRay Report ---
CHEST 2 VIEWS INDICATION / CLINICAL INFORMATION: chest tightness. COMPARISON: 03/22/20 FINDINGS: SUPPORT DEVICES: None. HEART / MEDIASTINUM: No significant abnormality. LUNGS / PLEURA: Slightly suboptimal inspiration with crowding of bronchovascular structures in the shantanu ng bases. No acute airspace disease. No pneumothorax. ADDITIONAL FINDINGS: No significant additional findings. IMPRESSION: 1. No acute findings. Signer Name: Afsaneh Tucker MD Signed: 08/04/2020 2:58 PM Workstation Name: [id number]
== END 2020-08-04 22:04 | disposition left against medical advice (07) ==
LOC: ED 13:17
DX: H57.13 Ocular pain, bilateral (principal); Z53.21 Procedure and treatment not carried out due to patient leaving prior to being seen by health care provider
CPT/HCPCS: 71046

== ENCOUNTER 2020-08-06 12:52 | Emergency (ER) | payer BC | END 2020-08-06 14:42 | disposition left against medical advice (07) | LOC: ED 12:52 | DX: M54.9 Dorsalgia, unspecified (principal); Z53.21 Procedure and treatment not carried out due to patient leaving prior to being seen by health care provider ==

== ENCOUNTER 2020-08-10 12:10 | Emergency (ER) | payer BC ==
--- NOTE | 2020-08-10 12:41 | Emergency Department Report ---
Blank Doc - Documentation Documentation: 50-year-old male was diagnosed with rhabdo 2 days ago at [facility] he was treated in their facility and discharged home since that time he reported progressive worsening chest pain and and flank pain with cough and congestion. This initial assessment/diagnostic orders/clinical plan/treatment(s) is/are subject to change based on patients health status, clinical progression and re- assessment by fellow clinical providers in the ED. Further treatment and workup at subsequent clinical providers discretion. Patient/guardian urged not to elope from the ED as their condition may be serious if not clinically assessed and managed. Initial orders include: Labs, urinalysis, troponin, chest x-ray, EKG
[2020-08-10 13:11] LABS: Basophils % (Auto) 0.4 % (0.0-1.8); Eosinophils # (Auto) 0.1 K/mm3 (0.0-0.4); Eosinophils % (Auto) 1.8 % (0.0-4.3); Hemoglobin 13.8 gm/dl (11.8-15.2); Lymphocytes # (Auto) 2.1 K/mm3 (1.2-5.4); Lymphocytes % (Auto) 30.8 % (13.4-35.0); Mean Corpuscular HGB Conc 34 % (32-34); Mean Corpuscular Volume 85 fl (84-94); Monocytes # (Auto) 0.6 K/mm3 (0.0-0.8); Monocytes % (Auto) 9.1 % (0.0-7.3); Platelet Count 264 K/mm3 (140-440); Red Blood Count 4.81 M/mm3 (3.65-5.03)
--- NOTE | 2020-08-10 13:12 | XRay Report ---
CHEST 2 VIEWS INDICATION / CLINICAL INFORMATION: chest pain and cough. COMPARISON: 08/04/2020. FINDINGS: SUPPORT DEVICES: None. HEART / MEDIASTINUM: No significant abnormality. LUNGS / PLEURA: Development of faint patchy peripheral pulmonary opacities. No pneumothorax. ADDITIONAL FINDINGS: No significant additional findings. IMPRESSION: There has been development of faint patchy peripheral pulmonary opacities, suggestive of an infectiou s process. A viral etiology cannot be excluded. Signer Name: Lizandro Monroy MD Signed: 08/10/2020 1:08 PM Workstation Name: [email or web address]
[2020-08-10 13:48] LABS: Alanine Aminotransferase 35 units/L (7-56); Albumin 3.8 g/dL (3.9-5); BUN/Creatinine Ratio 13; Blood Urea Nitrogen 12 mg/dL (9-20); Calcium 8.6 mg/dL (8.4-10.2); Hemolysis Index 2
[2020-08-10] MEDS ORDERED: DOXYCYCLINE 100 MG CAP PO ONE (21:24)
--- NOTE | 2020-08-10 21:31 | Emergency Department Report ---
- General Chief Complaint: Chest Pain Stated Complaint: HEART PAIN/DEHYDRATION PUI?: No Time Seen by Provider: 08/10/20 21:17 Source: patient Mode of arrival: Ambulatory Limitations: No Limitations - History of Present Illness Initial Comments: Chief complaint: "I have a cough that just will not quit." HPI: This is a healthy 50-year-old male without significant past medical history who presents with cough body aches for several weeks. For 2 weeks he has had a productive cough. He has body aches cramps. 2 days ago he was evaluated at [facility]. Rapid nasal swab COVID-19 test was negative. Flu a and B swabs were negative. Patient was given IV fluid therapy. No known sick contacts. He lives with his mother who has been healthy. Mother does work outside of the home. Patient denies fever. Denies chest pain. Denies abdomina l pain. No shortness of breath. He was diagnosed with rhabdomyolysis at [facility]. MD Complaint: cough, other (Body aches) -: week(s) (2 to 3 weeks) Severity: mild Consistency: constant Improves With: nothing Worsens With: nothing Context: other (No sick contacts, recent treatment at [facility]) Associated Symptoms: myalgias, cough Treatments Prior to Arrival: other (2 days ago patient received treatment in intermediate care clinic) - Related Data Home Medications Medication Instructions Recorded Confirmed Last Taken Escitalopram [Lexapro] 10 mg PO DAILY 03/22/20 03/22/20 Unknown Previous Rx's Medication Instructions Recorded Last Taken Type Doxycycline Hyclate [Doxycycline 100 mg PO Q12HR 10 Days #20 tab 08/10/20 Unknown Rx Hyclate TAB] Allergies Allergy/AdvReac Type Severity Reaction Status Date / Time No Known Allergies Allergy Verified 03/22/20 14:04 ED Review of Systems ROS: Stated complaint: HEART PAIN/DEHYDRATION Other details as noted in HPI Comment: All other systems reviewed and negative Constitutional: malaise. denies: fever ENT: denies: throat pain Respiratory: cough. denies: shortness of breath Cardiovascular: denies: chest pain ED Past Medical Hx - Past Medical History Previous Medical History?: Yes Hx Hypertension: Yes (BORDERLINE) Hx Psychiatric Treatment: Yes (Anxiety and panic attacks) Additional medical history: OBESITY - Surgical History Past Surgical History?: Yes Additional Surgical History: Lower endoscopy 5 years ago - Social History Smoking Status: Former Smoker Substance Use Type: Alcohol, Prescribed - Medications Home Medications: Home Medications Medication Instructions Recorded Confirmed Last Taken Type Escitalopram [Lexapro] 10 mg PO DAILY 03/22/20 03/22/20 Unknown History Doxycycline Hyclate [Doxycycline 100 mg PO Q12HR 10 Days #20 tab 08/10/20 Unknown Rx Hyclate TAB] ED Physical Exam - General Limitations: No Limitations General appearance: alert, in no apparent distress, other (Appears well, nontoxic, talkative) - Head Head exam: Present: atraumatic, normocephalic - Eye Eye exam: Present: normal appearance - ENT ENT exam: Present: mucous membranes moist - Neck Neck exam: Present: normal inspection, full ROM - Respiratory Respiratory exam: Present: rales (Left sided rales), other (Good air movement otherwise). Absent: respiratory distress, wheezes, rhonchi, accessory muscle use, decreased breath sounds, prolonged expiratory - Cardiovascular Cardiovascular Exam: Present: regular rate, normal rhythm, normal heart sounds. Absent: systolic murmur, diastolic murmur, rubs, gallop - GI/Abdominal GI/Abdominal exam: Present: soft, normal bowel sounds. Absent: distended, tenderness, guarding, rebound - Rectal Rectal exam: Present: deferred - Extremities Exam Extremities exam: Present: normal inspection - Neurological Exam Neurological exam: Present: alert, oriented X3 - Psychiatric Psychiatric exam: Present: normal affect, normal mood - Skin Skin exam: Present: warm, dry, intact, normal color. Absent: rash ED Course Vital Signs 08/10/20 12:33 Temperature 97.9 F Pulse Rate 72 Respiratory 18 Rate Blood Pressure 123/87 [Right] O2 Sat by Pulse 95 Oximetry ED Medical Decision Making - Lab Data Result diagrams: 08/10/20 12:39 08/10/20 12:39 Laboratory Results - last 24 hr 08/10/20 08/10/20 08/10/20 12:39 12:39 12:42 WBC 6.7 RBC 4.81 Hgb 13.8 Hct 41.0 MCV 85 MCH 29 MCHC 34 RDW 13.0 L Plt Count 264 Lymph % (Auto) 30.8 [place] % (Auto) 9.1 H Eos % (Auto) 1.8 Baso % (Auto) 0.4 Lymph # (Auto) 2.1 [place] # (Auto) 0.6 Eos # (Auto) 0.1 Baso # (Auto) 0.0 Seg Neutrophils % 57.9 Seg Neutrophils # 3.9 Sodium 137 Potassium 3.7 Chloride 102.8 Carbon Dioxide 26 Anion Gap 12 BUN 12 Creatinine 0.9 Estimated GFR > 60 BUN/Creatinine Ratio 13 Glucose 116 H Calcium 8.6 Total Bilirubin 0.40 AST 29 ALT 35 Alkaline Phosphatase 49 Total Creatine Kinase 304 H Troponin T < 0.010 Total Protein 7.4 Albumin 3.8 L Albumin/Globulin Ratio 1.1 - Radiology Data Radiology results: report reviewed, image reviewed CHEST 2 VIEWS INDICATION / CLINICAL INFORMATION: chest pain and cough. COMPARISON: 08/04/2020. FINDINGS: SUPPORT DEVICES: None. HEART / MEDIASTINUM: No significant abnormality. LUNGS / PLEURA: Development of faint patchy peripheral pulmonary opacities. No pneumothorax. ADDITIONAL FINDINGS: No significant additional findings. IMPRESSION: There has been development of faint patchy peripheral pulmonary opacities, suggestive of an infectious process. A viral etiology cannot be excluded - Medical Decision Making Community-acquired pneumonia confirmed with abnormal lung exam as well as chest radiographs. Viral etiology such as COVID-19 is probable as well as bacterial pneumonia. Patient understands to self isolate for the next 10 days. He was prescribed doxycycline. CBC chemistry was normal limits. Troponin negative. EKG was normalized. CK equivocal level. I do not suspect rhabdomyolysis. Critical care attestation.: If time is entered above; I have spent that time in minutes in the direct care of this critically ill patient, excluding procedure time. ED Disposition Clinical Impression: Community acquired pneumonia Disposition: DC-01 TO HOME OR SELFCARE Is pt being admited?: No Does the pt Need Aspirin: No Condition: Stable Instructions: Bacterial Pneumonia (ED), Community-Acquired Pneumonia, Adult Prescriptions: Doxycycline Hyclate [Doxycycline Hyclate TAB] 100 mg PO Q12HR 10 Days #20 tab Referrals: KENDRICK CANNON MD [Staff Physician] - 3-5 Days
[2020-08-10 21:43] VITALS: BP 120/78
== END 2020-08-10 21:43 | disposition home or self-care (01) ==
LOC: ED 12:10
DX: J18.9 Pneumonia, unspecified organism (principal); I10 Essential (primary) hypertension; F41.9 Anxiety disorder, unspecified; Z98.890 Other specified postprocedural states; Z87.891 Personal history of nicotine dependence; Z79.899 Other long term (current) drug therapy
CPT/HCPCS: 36415; 71046; 80053; 82550; 84484; 85025; 93005

== ENCOUNTER 2021-02-10 23:10 | Emergency (ER) | payer BC, OTHER ==
[2021-02-11 00:32] VITALS: BP 137/95
[2021-02-11] MEDS ORDERED: IBUPROFEN 600 MG TAB PO ONE (04:02)
[2021-02-11] MEDS ORDERED: ONDANSETRON 4 MG ODT TAB PO ONE (04:02)
[2021-02-11] MEDS ORDERED: HYDROcodone/ACETAMINOPHEN 5-325 MG TAB PO ONE (04:02)
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
== END 2021-02-11 05:10 | disposition home or self-care (01) ==
LOC: ED 23:10
DX: M62.838 Other muscle spasm (principal); I10 Essential (primary) hypertension; F41.9 Anxiety disorder, unspecified; Z98.890 Other specified postprocedural states; Z87.891 Personal history of nicotine dependence; Z79.899 Other long term (current) drug therapy; Z79.1 Long term (current) use of non-steroidal anti-inflammatories (NSAID); Z88.8 Allergy status to other drugs, medicaments and biological substances; V49.49XA Driver injured in collision with other motor vehicles in traffic accident, initial encounter; Y93.89 Activity, other specified; Y92.410 Unspecified street and highway as the place of occurrence of the external cause; Y99.8 Other external cause status
CPT/HCPCS: 72100; 72125; Q0162